=== PATIENT | female | born 1950 | race Caucasian/White ===

== ENCOUNTER 2016-04-19 11:39 | Outpatient (CLI) | payer MEDICARE ==
[2016-04-19 13:58] LABS: ALT (SGPT) 41 U/L (0-55); AST (SGOT) 34 U/L (5-34); Albumin 4.4 g/dL (3.4-4.8); Alkaline Phosphatase 70 U/L (40-150); Anion Gap 16 mmol/L (10-20); BUN (Urea Nitrogen) 14 mg/dL (9.8-20.1); Bilirubin, Total 0.4 mg/dL (0.2-1.2); Calc. Creatinine Clearance 0 mL/min (70-130); Calcium 9.4 mg/dL (7.8-10.44); Carbon Dioxide 25 mmol/L (23-31); Cardiac Risk 4.1 (Less than 4.5); Chloride 100 mmol/L (98-107); Cholesterol 245 mg/dL (< 200 Desired); Estimated GFR-MDRD 80; Globulin 2.5 g/dL (2.4-3.5); Glucose 125 mg/dL (80-115); HDL Cholesterol 60 mg/dL (>60 Neg Risk); LDL Cholesterol, Calculated 164 mg/dL; Potassium 4.5 mmol/L (3.5-5.1); Protein, Total 6.9 g/dL (5.8-8.1); Sodium 136 mmol/L (136-145); Triglycerides 107 mg/dL (Less than 150)
== END 2016-04-19 11:40 | disposition home or self-care (01) ==
LOC: MADLABBHPM 11:39
PROVIDERS: ATTEND Family Medicine
DX: E78.5 Hyperlipidemia, unspecified (principal); E11.9 Type 2 diabetes mellitus without complications
CPT/HCPCS: 36415; 80053; 80061; 83036

== ENCOUNTER 2016-07-19 13:47 | Outpatient (CLI) | payer MEDICARE ==
[2016-07-19 14:25] LABS: ALT (SGPT) 40 U/L (8-55); AST (SGOT) 38 U/L (5-34); Albumin 4.3 g/dL (3.4-4.8); Alkaline Phosphatase 68 U/L (40-150); Anion Gap 16 mmol/L (10-20); BUN (Urea Nitrogen) 15 mg/dL (9.8-20.1); Bilirubin, Total 0.4 mg/dL (0.2-1.2); Calc. Creatinine Clearance 0 mL/min (70-130); Calcium 9.6 mg/dL (7.8-10.44); Carbon Dioxide 26 mmol/L (23-31); Cardiac Risk 4.1 (Less than 4.5); Chloride 101 mmol/L (98-107); Cholesterol 253 mg/dL (< 200 Desired); Estimated GFR-MDRD 73; Globulin 2.7 g/dL (2.4-3.5); Glucose 111 mg/dL (80-115); HDL Cholesterol 62 mg/dL (>60 Neg Risk); LDL Cholesterol, Calculated 171 mg/dL; Potassium 4.6 mmol/L (3.5-5.1); Sodium 138 mmol/L (136-145); Triglycerides 99 mg/dL (Less than 150)
== END 2016-07-19 13:48 | disposition home or self-care (01) ==
LOC: MADLABBHPM 13:47
PROVIDERS: ATTEND Family Medicine
DX: E78.5 Hyperlipidemia, unspecified (principal); I10 Essential (primary) hypertension; E11.9 Type 2 diabetes mellitus without complications
CPT/HCPCS: 36415; 80053; 80061; 83036

== ENCOUNTER 2016-07-22 14:47 | Outpatient (CLI) | payer MEDICARE ==
[2016-07-22 15:14] LABS: #Basophils 0.1 thou/uL (0.0-0.2); #Eosinphils 0.2 thou/uL (0.0-0.7); #Lymphocytes 2.1 thou/uL (1.20-3.40); #Monocytes 0.7 thou/uL (0.11-0.59); #Neutrophils 4.9 thou/uL (1.40-6.50); %Lymphocytes 26.4 % (21.0-51.0); %Monocytes 9.1 % (0.0-10.0); %Neutrophils 60.5 % (42.0-75.0); Hemoglobin 13.3 g/dL (12.0-16.0); Mean Corpuscular HGB CONC 33.8 g/dL (32.0-36.0); Mean Corpuscular Hemoglobin 32.4 pg (27.0-31.0); Mean Corpuscular Volume 95.9 fl (81.0-99.0); Mean Platelet Volume 8.2 fL (7.4-10.4); Platelet Count 234 thou/uL (130-400); RBC Distribution Width 11.2 % (11.5-14.5); Red Blood Cell (RBC) Count 4.09 mill/uL (4.20-5.40)
[2016-07-22 15:29] LABS: CRP (Inflammatory) Less than 0.50 mg/dL (= or < 0.5)
[2016-07-22 16:18] LABS: Free T4 (Free Thyroxine) 1.06 ng/dL (0.70-1.48); Thyroid Stimulating Hormone 1.8233 uIU/mL (0.35-4.94)
[2016-07-23 17:31] LABS: Iron 72 ug/dL (50-170)
[2016-07-23 17:51] LABS: Ferritin 163.23 ng/mL (10-291)
[2016-07-23 18:20] LABS: Folate (Folic Acid) 11.9 ng/mL (7.0-31.4)
== END 2016-07-22 14:48 | disposition home or self-care (01) ==
LOC: MADLABBHPM 14:47
PROVIDERS: ATTEND Family Medicine
DX: R53.83 Other fatigue (principal)
CPT/HCPCS: 36415; 82607; 82728; 82746; 83540; 84439; 84443; 85025; 85652; 86140

== ENCOUNTER 2017-03-17 11:26 | Emergency (ER) | payer MEDICARE | END 2017-03-17 12:45 | disposition home or self-care (01) | LOC: MADERS 11:26 | DX: I80.3 Phlebitis and thrombophlebitis of lower extremities, unspecified (principal); Z87.891 Personal history of nicotine dependence; Z79.82 Long term (current) use of aspirin; Z79.899 Other long term (current) drug therapy | CPT/HCPCS: 99283 ==

== ENCOUNTER 2017-12-06 22:29 | Emergency (ER) | payer MEDICARE ==
[2017-12-06] MEDS ORDERED: Cyclobenzaprine 10 MG TAB ONE (23:00)
[2017-12-06] MEDS ORDERED: Ibuprofen 400 MG TAB ONE (23:00)
== END 2017-12-06 23:00 | disposition home or self-care (01) ==
LOC: MADERS 22:29
DX: M54.6 Pain in thoracic spine (principal); E11.9 Type 2 diabetes mellitus without complications; I10 Essential (primary) hypertension; Z87.891 Personal history of nicotine dependence; Z79.82 Long term (current) use of aspirin; Z79.84 Long term (current) use of oral hypoglycemic drugs; Z79.899 Other long term (current) drug therapy
CPT/HCPCS: 99283

== ENCOUNTER 2018-08-03 13:38 | Emergency (ER) | payer MEDICARE ==
[2018-08-03] MEDS ORDERED: Lidocaine 1% 20 ML MDV ONE (14:04)
[2018-08-03] MEDS ORDERED: cefTRIAXone\\ROCEPHIN 1 GM VIAL ONE (14:04)
[2018-08-03] MEDS ORDERED: diphenhydrAMINE 25 MG CAP ONE (14:04)
== END 2018-08-03 15:30 | disposition home or self-care (01) ==
LOC: MADERS 13:38
DX: R22.0 Localized swelling, mass and lump, head (principal); E11.9 Type 2 diabetes mellitus without complications; I10 Essential (primary) hypertension; Z87.891 Personal history of nicotine dependence; Z79.899 Other long term (current) drug therapy; Z79.84 Long term (current) use of oral hypoglycemic drugs; Z79.82 Long term (current) use of aspirin
CPT/HCPCS: 96372; J0696; J2001; Q0163